=== PATIENT | male | born 1995 | race Caucasian/White ===

== ENCOUNTER 2022-01-20 01:30 | Emergency (ER) | payer BC, OTHER ==
[~2022-01-20] VITALS: Ht 185 cm; Wt 100.0 kg
[~2022-01-20 01:30] MED LIST: ALBU2.5V4 IH; AMOX-358 PO; CEPH500C PO; DOXY100C5 PO; HYDR1TAB PO; LISI20TA26 PO; NEBU1KIT3 MC; PRD20T PO; STEROID
[2022-01-20 02:23] LABS: HEMOGLOBIN 14.4 g/dL (13.3-17.7); MEAN PLATELET VOLUME 11.4 fL (9.0-12.2)
[2022-01-20 02:24] LABS: ALBUMIN 4.3 GM/DL (3.2-4.5); POTASSIUM 3.6 MMOL/L (3.6-5.0)
[2022-01-20 02:27] LABS: CALCIUM 8.8 MG/DL (8.5-10.1); TOTAL PROTEIN 6.8 GM/DL (6.4-8.2)
[2022-01-20 02:28] LABS: BILIRUBIN,TOTAL 0.5 MG/DL (0.1-1.0)
[2022-01-20 02:30] VITALS: BP 160/97
[2022-01-20 02:30] LABS: CREATININE SERUM 0.89 MG/DL (0.60-1.30)
[2022-01-20] MEDS ORDERED: TETANUS,DIPTH,PERTUSS P/F (BOOSTRIX) 0.5 ML VIAL IM ONE (02:30)
[2022-01-20 02:32] LABS: BILIRUBIN,DIRECT 0.2 MG/DL (0.0-0.3); BILIRUBIN,INDIRECT 0.3 MG/DL
[2022-01-20 03:11] LABS: BILIRUBIN,URINE NEGATIVE (NEGATIVE); CLARITY,URINE CLEAR; COLOR,URINE YELLOW; GLUCOSE, URINE (UA) NEGATIVE (NEGATIVE); KETONES,URINE NEGATIVE (NEGATIVE); LEUKOCYTE ESTERASE ,URINE NEGATIVE (NEGATIVE); NITRITE,URINE NEGATIVE (NEGATIVE); PROTEIN,URINE 1+ (NEGATIVE)
[2022-01-20] MEDS ORDERED: NS 100 ML (IVPB) BAG IV ONE (03:15)
[2022-01-20] MEDS ORDERED: HOLD METFORMIN - RECEIVED CONTRAST 20 ML VIAL IV SCH (03:15)
[2022-01-20] MEDS ORDERED: IOHEXOL 350 MG/ML 100 ML (OMNIPAQUE 350) VIAL IV ONE (03:15)
[2022-01-20] MEDS ORDERED: CATHETER FLUSH 10 ML SYR IV PRN (03:15)
[2022-01-20 03:17] LABS: BACTERIA,URINE NEGATIVE /HPF; SQUAMOUS EPITHELIAL CELL,UR 0-2 /HPF
[2022-01-20] MEDS ORDERED: fentaNYL INJ 100 MCG/2 ML AMP IVP ONE (03:45)
[2022-01-20] MEDS ORDERED: morphine INJ 10 MG/ML 1ML (SYR OR VIAL) IVP STA (04:40)
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
[2022-01-20] MEDS ORDERED: BACITRACIN OINTMENT 28 GM TUBE TOP SCH (09:00)
== END 2022-01-20 05:45 | disposition short-term general hospital (02) ==
LOC: EDUNIT# 01:30 → ER 01:32
DX: S32.018A Other fracture of first lumbar vertebra, initial encounter for closed fracture (principal); S20.211A Contusion of right front wall of thorax, initial encounter; S90.32XA Contusion of left foot, initial encounter; F17.220 Nicotine dependence, chewing tobacco, uncomplicated; Z23 Encounter for immunization; V29.9XXA Motorcycle rider (driver) (passenger) injured in unspecified traffic accident, initial encounter
CPT/HCPCS: 71260; 73630; 74177; 80048; 80076; 81000; 85027; 93041; 99291; G0480; 36415; 80320; 90715